=== PATIENT | female | born 1975 | race Caucasian/White ===

== ENCOUNTER 2017-11-06 15:10 | Emergency (ER) | payer MEDICARE, MEDICAID ==
[2017-11-06] MEDS ORDERED: Morphine 4 MG/ML VIAL ONE (16:46)
[2017-11-06] MEDS ORDERED: Sulfameth/Trimethoprim DS 800-160mg TAB ONE (16:47)
[2017-11-06] MEDS ORDERED: Lidocaine 1% 20 ML MDV ONE (16:47)
== END 2017-11-06 17:30 | disposition home or self-care (01) ==
LOC: MADERS 15:10
DX: L03.114 Cellulitis of left upper limb (principal)
CPT/HCPCS: 10060; 96372; J2001; J2270